=== PATIENT | male | born 2000 | race Two or more races ===

== ENCOUNTER 2024-09-24 10:25 | Day surgery (SDC) | payer BC, SELFPAY ==
[2024-09-21 14:19] VITALS: BMI 42.0
--- NOTE | 2024-09-21 16:12 | EKG_ITS ---
[facility] Test Date: 2024-09-21 Pat Name: FELIX CHAVEZ Department: Room: - Gender: Male Facility Practice Specialist: AMANDA : 2000 Requested By: Deny Henry Order Number: [id number] Reading MD: Deny Henry Measurements Intervals [place] Rate: 63 P: 51 OR: 169 QRS: 36 QRSD: 90 T: 40 QT: 382 QTc: 392 Interpretive Statements SINUS RHYTHM WITH SINUS ARRHYTHMIA No previous ECG available for comparison /[id number]/[id number]
[2024-09-21 17:05] LABS: Partial Thromboplastin Time 30.5 Seconds (22.0-36.0); Prothrombin Time 11.1 Seconds (9.0-12.2)
[2024-09-21 17:10] LABS: Alanine Aminotransferase 33 U/L (10-49); Albumin, Serum 4.8 gm/dL (3.5-5.0); Albumin/Globulin Ratio 1.7 (1.2-2.2); Alkaline Phosphatase 78 U/L (46-116); Anion Gap 8 (7-16); Aspartate Amino Transferase 20 U/L (0-34); BUN/Creatinine Ratio 13 Ratio (12-20); Blood Urea Nitrogen 13 mg/dL (9-23); Calcium 9.7 mg/dL (8.3-10.6); Calcium (Corrected) 9.7 mg/dL (8.5-10.1); Carbon Dioxide 29.2 mMol/L (20.0-31.0); Chloride 105 mMol/L (98-107); Estimated Creatinine Clearance 183.2 mL/min (>60); Globulin 2.8 gm/dL (2.3-3.5); Glucose 89 mg/dL (74-106); Osmolality,Calculated 282 (275-295); Potassium 4.2 mMol/L (3.4-5.1); Sodium 142 mMol/L (136-145); Total Protein 7.6 gm/dL (5.7-8.2); eGFR > 60 See Note
[2024-09-24 10:51] VITALS: BP 146/102; PULSE 83; RESP 16; TEMP 37.1; O2SAT 97; BMI 42.8
[2024-09-24] MEDS: RINGERS LACTATED 1000 ML 1,000 ML 20 ML IV (12:34)
[2024-09-24 13:25] VITALS: BP 142/87; PULSE 101; RESP 20; TEMP 37.4; O2SAT 99
[2024-09-24 13:35] VITALS: BP 125/97; PULSE 101; RESP 20; O2SAT 98
[2024-09-24 13:45] VITALS: BP 135/95; PULSE 82; RESP 15; O2SAT 97
--- NOTE | 2024-09-24 13:53 | SUR.PHASEII ---
1320 Pt arrived into PACU. Pt moving about in bed, non-posturing. Pads placed to side rails. Resp spontaneous and unlabored. Dr Pickard at bedside. Pt not following commands. Will monitor closely. 1330 Pt continues to occasionally shake. Does open eyes to command and is responding to calm touch and reassurance. 1340 Dr Henry at bedside-pt more calm and not shaking. VSS. IV fluids cont. 1400 Pt more awake and alert. Following commands. Denies pain, N/V or difficulty swallowing. Maryann PO fluids. Report given to Citlali CASTELLANOS assuming care.
[2024-09-24 14:00] VITALS: BP 136/87; PULSE 87; RESP 20; TEMP 36.7; O2SAT 100
--- NOTE | 2024-09-24 14:00 | SUR.PHASEII ---
REPORT RECEIVED FROM JESSICA CASTELLANOS, PATIENT AWAKE AND ALERT DRINKING APPLE JUICE. NO COMPLAINTS OF PAIN OR NAUSEA. V/S STABLE.
--- NOTE | 2024-09-24 14:06 | SUR.PHASEII ---
PATIENT AMBULATES TO BATHROOM STEADY WITH NO DIFFICULTY.
== END 2024-09-24 14:20 | disposition home or self-care (01) ==
PROVIDERS: PCP Physician Assistant Medical; Referring Provider Specialist; Visit Provider Specialist
PROC: 0DBE8ZX Excision of Large Intestine, Via Natural or Artificial Opening Endoscopic, Diagnostic (ICD-10-PCS; CPT 45380; principal; 2024-09-24 11:15)
PROC: (CPT 43239; 2024-09-24 11:15)
DX: K64.3 Fourth degree hemorrhoids (principal); Z01.810 Encounter for preprocedural cardiovascular examination
CPT/HCPCS: 46221; 45378; 36415; 80053; 85610; 85730; 93005; A4649; C1769; J7120

== ENCOUNTER → 2025-02-21 | Outpatient (CLI) | payer BC, SELFPAY ==
[2025-02-21 11:37] LABS: Urea Breath Test Negative (Negative)
== END | disposition home or self-care (01) ==
PROVIDERS: Referring Provider Specialist; Visit Provider Specialist
DX: B96.81 Helicobacter pylori [H. pylori] as the cause of diseases classified elsewhere (principal)
CPT/HCPCS: 83013; 83014